=== PATIENT | female | born 1945 | race Caucasian/White ===

== ENCOUNTER 2024-12-03 11:17 | Outpatient (CLI) | payer OTHER, SELFPAY | END 2024-12-03 11:18 | disposition home or self-care (01) | PROVIDERS: Visit Provider Family Medicine | DX: D64.9 Anemia, unspecified (principal); E83.42 Hypomagnesemia; I07.1 Rheumatic tricuspid insufficiency; I35.0 Nonrheumatic aortic (valve) stenosis; I47.19 Other supraventricular tachycardia; N17.9 Acute kidney failure, unspecified; Z79.899 Other long term (current) drug therapy | CPT/HCPCS: 80053; 82607; 82728; 83540; 83735 ==

== ENCOUNTER 2024-12-28 08:30 | Outpatient (CLI) | payer OTHER, SELFPAY | END 2024-12-28 08:31 | disposition home or self-care (01) | LOC: NFLDREF 01-01 03:01 | PROVIDERS: Visit Provider Family Medicine | DX: D64.9 Anemia, unspecified (principal) | CPT/HCPCS: 82728; 83540 ==

== ENCOUNTER 2025-01-04 16:29 | Outpatient (CLI) | payer OTHER, SELFPAY | END 2025-01-04 16:30 | disposition home or self-care (01) | LOC: LKVREF 16:30 | PROVIDERS: PCP Family Medicine; Visit Provider Family Medicine | DX: D64.9 Anemia, unspecified (principal) | CPT/HCPCS: 80048 ==

== ENCOUNTER 2025-03-18 18:29 | Outpatient (CLI) | payer OTHER, SELFPAY | END 2025-03-18 18:30 | disposition home or self-care (01) | PROVIDERS: PCP Family Medicine; Visit Provider Family Medicine | DX: D64.9 Anemia, unspecified (principal); I10 Essential (primary) hypertension; N17.9 Acute kidney failure, unspecified | CPT/HCPCS: 80048; 83735 ==